=== PATIENT | female | born 1965 | race Caucasian/White ===

== ENCOUNTER → 2020-11-17 09:53 | Outpatient (CLI) | payer OTHER, SELFPAY ==
--- NOTE | ~2020-11-17 | MM_ITS ---
EXAMINATION: MM screening cecy BI w kumar HISTORY: Screening TECHNIQUE: Craniocaudal and mediolateral oblique 3-D tomosynthesis images were obtained and synthetic 2-D images were generated. CAD analysis was submitted and interpreted. COMPARISON: Comparison to multiple prior studies sequentially, with oldest reviewed study dated 02/12. BREAST PARENCHYMAL COMPOSITION: The breasts are heterogeneously dense, which may obscure small masses . FINDINGS: There are surgical changes in the right breast, unchanged. There is no evidence of suspicio us mass, calcification, or architectural distortion to suggest malignancy in either breast. There has been no suspicious interval change. IMPRESSION: 1. No mammographic evidence of malignancy. 2. Recommend routine screening mammography in one year. BI-RADS Category 2: Benign finding(s). Reviewed, dictated and finalized at location A. SUPERVISOR
--- NOTE | ~2020-11-17 | DEXA_ITS ---
Bone Density Report Name: Oriana Austin Age: 54 Sex: Female Ethnicity: White Date of : 1965 Indication: osteopenia; cancer; postmenopausal Referring Provider: Jared, Gina Study: Bone densitometry was performed. Exam Date: November 17, 2020 Accession number: [id number] Bone Density: Region BMD T-score Z-score Classification AP Spine (L1-L4) 0.829 -2.0 -0.8 Osteopenia Femoral Neck (Left) 0.611 -2.1 -1.0 Osteopenia Total Hip (Left) 0.710 -1.9 -1.1 Osteopenia Femoral Neck (Right) 0.583 -2.4 -1.3 Osteopenia Total Hip (Right) 0.741 -1.6 -0.9 Osteopenia Total Hip Mean 0.726 -1.8 -1.0 Osteopenia World Health Organization criteria for BMD impression classify patients as: Normal (T-score at or above -1.0), Osteopenia (T-score between -1.0 and -2.5), or Osteoporosis (T-score at or below -2.5). 10-year Fracture Risk(1): Major Osteoporotic Fracture 8.7% Hip Fracture 1.5% Reported Risk Factors: [place] (), Neck BMD=0.583, BMI=21.2 (1) FRAX(R) Version 3.08. Fracture probability calculated for an untreated patient. Fracture probability may be lower if the patient has received treatment. Previous Exams: Region Exam Age BMD T-score BMD Change BMD Change Date g/cm2 vs Baseline vs Previous AP Spine(L1-L4) 11/17/2020 54 0.829 -2.0 -0.065* -0.065* 02/13/2016 50 0.894 -1.4 Total Hip(Left) 11/17/2020 54 0.710 -1.9 -0.023 -0.023 02/13/2016 50 0.733 -1.7 Total Hip(Right) 11/17/2020 54 0.741 -1.6 -0.013 -0.013 02/13/2016 50 0.754 -1.5 *Denotes significance at 95% confidence level, LSC for AP Spine = 0.022 g/cm2, LSC for Total Hip = 0.027 g/cm2 Clinical Information Provided by Patient: Has used the following medications: Vitamin D, Calcium Has the following medical conditions: Cancer Patient maximum height was 66.0 Menopause Age: 49 No regular weight bearing exercise Drinks caffeinated beverages Onset of menses at age 11 Number of children 2 Impression: The patient has low bone mass, based on the Right Femoral Neck T-score. The patient has an estimated ten-year risk of hip fracture of 1.5% and an estimated ten-year risk of major fracture of 8.7%, based on the WHO FRAX algorithm. The BMD for the AP Spine(L1-L4) decreased, changing by -0.065 since the last DXA exam. Discussion: BONE DENSITY IS LOW AT ONE OR MORE SKELETAL SITES. This patient's lowest T-score is low
== END ==
PROVIDERS: Visit Provider Nurse Practitioner
DX: Z12.31 Encounter for screening mammogram for malignant neoplasm of breast (principal); Z13.820 Encounter for screening for osteoporosis; M85.88 Other specified disorders of bone density and structure, other site; M85.852 Other specified disorders of bone density and structure, left thigh; M85.851 Other specified disorders of bone density and structure, right thigh
CPT/HCPCS: 77063; 77067; 77080

== ENCOUNTER → 2021-10-27 08:42 | Outpatient (CLI) | payer OTHER, SELFPAY ==
[2021-10-27 17:54] LABS: SARS-CoV-2 RNA PCR Negative
== END ==
PROVIDERS: Visit Provider Internal Medicine Gastroenterology
DX: Z01.812 Encounter for preprocedural laboratory examination (principal); Z20.822 Contact with and (suspected) exposure to COVID-19
CPT/HCPCS: C9803; U0003; U0005

== ENCOUNTER 2021-10-30 02:30 | Day surgery (SDC) | payer OTHER, SELFPAY ==
[2021-10-18 13:44] VITALS: BMI 22.6
[2021-10-30 08:10] VITALS: BP 126/72; PULSE 96; RESP 16; TEMP 36.4; O2SAT 98; BMI 22.6
--- NOTE | 2021-10-30 08:20 | P.CONGI_ITS ---
Assessment and Plan Assessment and plan (1) Encounter for screening colonoscopy: Code(s): Z12.11 - Encounter for screening for malignant neoplasm of colon Status: Acute GI Consult Note Consult date/time: 10/30/21 08:20 HPI: Oriana Austin is a 55 year old female Presents for screening colonoscopy. He has been more than 10 years since last screening exam. Brief patient reports that her current weight appetite and bowel movements are normal. She denies abdominal pain. She has had no bleeding. Family history is noncontributory. Patient does report 8 years ago had breast cancer currently followed with no evidence of active disease. Review of Systems Review of Systems: All systems reviewed & are unremarkable except as noted in HPI and below PMFSH Family History Family History (Updated 06/22/16 @ 23:19 by DOCTOR UNKNOWN) Grandparent Family history of malignant neoplasm of breast, Onset Age: 85 Social History Social History Smoking status: Never smoker Alcohol intake: current Alcohol use details: occasional Substance use: never Substance use type: does not use Living arrangements: with family Spiritual care concerns: No Meds Home Medications and Allergies Home Medications Medication Instructions Recorded Confirmed Type alendronate [Fosamax] 70 mg PO WEEKLY 10/18/21 10/30/21 History alprazolam 0.5 mg PO TID 10/18/21 10/30/21 History aspirin [Baby Aspirin] 81 mg PO DAILY 10/18/21 10/30/21 History calcium carbonate-vitamin D3 1 tablet PO DAILY 10/18/21 10/30/21 History [Caltrate 600 plus D] cholecalciferol (vitamin D3) 50 mcg PO DAILY 10/18/21 10/30/21 History [Vitamin D3] eszopiclone [Lunesta] 3 mg PO HS 10/18/21 10/30/21 History fluticasone propionate [Flonase] 2 spray INTRANASAL DAILY 10/18/21 10/30/21 Hist ory loratadine 10 mg PO DAILY 10/18/21 10/30/21 History spironolactone 50 mg PO DAILY 10/18/21 10/30/21 History vilazodone [Viibryd] 20 mg PO DAILY 10/18/21 10/30/21 History Allergies Allergy/AdvReac Type Severity Reaction Status Date / Time Iodinated Contrast Media Allergy Unknown Hives Verified 10/30/21 08:06 Contrast Media Allergy Unknown Hives Uncoded 10/30/21 08:06 Vital Signs Vital Signs - 24 hr 10/30/21 08:10 Temperature 97.6 F Pulse Rate 96 Respiratory Rate 16 Blood Pressure 126/72 Pulse Oximetry 98 Exam Narrative: Physical exam reveals patient be alert. Vital signs stable. HE ENT exam is unremarkable. Patient is anicteric. Lungs are clear to auscultation and percussion. Heart is without murmur or extra sounds. Abdominal exam bowel sounds are present soft nontender with no organomegaly. Digital external rectal exam is normal.
[2021-10-30] MEDS: LACTATED RINGERS 1,000 ML 150 ML IV CONT (08:23)
--- NOTE | 2021-10-30 08:49 | WPDANESEPPF ---
Anes - Initial Pre Proc Eval Procedure: Operation Date: 10/30/21 09:00 Proposed Procedures p Screening Colonoscopy - Raymond Laguna MD Date/Time: 10/30/21 08:49 Surgeon: Raymond Laguna MD Pre Op Diagnosis: neoplasm screening Patient Data Age: 55 Gender: F Height: 1.68 m Weight: 63.8 kg Last Vital Signs Temp 97.6 F 10/30/21 08:10 Pulse 96 10/30/21 08:10 Resp 16 10/30/21 08:10 BP 126/72 10/30/21 08:10 Pulse Ox 98 10/30/21 08:10 Allergies Allergy/AdvReac Type Severity Reaction Status Date / Time Iodinated Contrast Media Allergy Unknown Hives Verified 10/30/21 08:06 Contrast Media Allergy Unknown Hives Uncoded 10/30/21 08:06 Home Medications Medication Instructions Recorded Confirmed Type alendronate [Fosamax] 70 mg PO WEEKLY 10/18/21 10/30/21 History alprazolam 0.5 mg PO TID 10/18/21 10/30/21 History aspirin [Baby Aspirin] 81 mg PO DAILY 10/18/21 10/30/21 History calcium carbonate-vitamin D3 1 tablet PO DAILY 10/18/21 10/30/21 History [Caltrate 600 plus D] cholecalciferol (vitamin D3) 50 mcg PO DAILY 10/18/21 10/30/21 History [Vitamin D3] eszopiclone [Lunesta] 3 mg PO HS 10/18/21 10/30/21 History fluticasone propionate [Flonase] 2 spray INTRANASAL DAILY 10/18/21 10/30/21 History loratadine 10 mg PO DAILY 10/18/21 10/30/21 History spironolactone 50 mg PO DAILY 10/18/21 10/30/21 History vilazodone [Viibryd] 20 mg PO DAILY 10/18/21 10/30/21 History Patient hx anesthesia problems: none Family hx anesthesia problems: none Results Review: All pre-operative results and documents have been reviewed as part of the pre-operative evaluation. [facility] Surgical History Surgical History (Updated 10/30/21 @ 08:43 by Philip Page MD) H/O subtotal mastectomy of right breast Family History Family History (Updated 06/22/16 @ 23:19 by DOCTOR UNKNOWN) Grandparent Family history of malignant neoplasm of breast, Onset Age: 85 Social History Social History Smoking status: Never smoker Alcohol intake: current Alcohol use details: occasional Substance use: never Substance use type: does not use Living arrangements: with family Spiritual care concerns: No Anes - Eval Final PreProcedure Day of Procedure 10/30/21 08:49 Patient weight: overweight Heart: regular rate and rhythm Lungs: clear to auscultation Airway: Mallampati scale class II Neurological: alert and oriented Last oral intake: >/= 8 hours ASA classification: III Emergent: no Anesthetic plan: proceed Anesthesia type and monitoring: general GIVS and standard monitoring Results Review: All pre-operative results and documents have been reviewed as part of the pre-operative evaluation. Informed Consent: The patient's anesthetic plan and its attendant risks and benefits were discussed with the patient/family/POA. Questions were solicited and answers provided to the satisfaction of the patient/family/POA.
[2021-10-30 09:10] VITALS: BP 89/55; PULSE 83; RESP 18; O2SAT 94
[2021-10-30 09:20] VITALS: BP 104/64; PULSE 79; RESP 19; O2SAT 98
[2021-10-30 09:30] VITALS: BP 116/65; PULSE 78; RESP 19; O2SAT 99
== END 2021-10-30 09:40 | disposition home or self-care (01) ==
PROVIDERS: PCP Nurse Practitioner Family; Visit Provider Internal Medicine Gastroenterology
PROC: 0DJD8ZZ Inspection of Lower Intestinal Tract, Via Natural or Artificial Opening Endoscopic (ICD-10-PCS; CPT 45378; principal; 2021-10-30 09:00)
DX: Z12.11 Encounter for screening for malignant neoplasm of colon (principal); K64.8 Other hemorrhoids; Z79.82 Long term (current) use of aspirin; Z85.3 Personal history of malignant neoplasm of breast
CPT/HCPCS: 45378; C9803; J2704; J7120; U0003; U0005

== ENCOUNTER → 2021-11-22 16:09 | Outpatient (CLI) | payer OTHER, SELFPAY ==
--- NOTE | ~2021-11-22 | MM_ITS ---
EXAMINATION: MM screening cecy BI w kumar HISTORY: Screening TECHNIQUE: Craniocaudal and mediolateral oblique 3-D tomosynthesis images were obtained and synthetic 2-D images were generated. CAD analysis was submitted and interpreted. COMPARISON: Comparison to multiple prior studies sequentially, with oldest reviewed study dated 03/12. BREAST PARENCHYMAL COMPOSITION: There are scattered areas of fibroglandular density. FINDINGS: There is no evidence of suspicious mass, calcification, or architectural distortion to sugg est malignancy in either breast. There has been no suspicious interval change. IMPRESSION: 1. No mammographic evidence of malignancy. 2. Recommend routine screening mammography in one year. BI-RADS Category 1: Negative Reviewed, dictated and finalized at location A. RIAL CONTROL MANAGER
== END ==
PROVIDERS: PCP Nurse Practitioner Family; Visit Provider Nurse Practitioner
DX: Z12.31 Encounter for screening mammogram for malignant neoplasm of breast (principal)
CPT/HCPCS: 77063; 77067

== ENCOUNTER → 2023-01-22 14:43 | Outpatient (CLI) | payer BC, SELFPAY ==
--- NOTE | ~2023-01-22 | DEXA_ITS ---
Bone Density Report Name: MITESH VELEZ Age: 57 Sex: Female Ethnicity: White Date of : 1965 Indication: osteopenia; monitoring treatment; postmenopausal Referring Provider: Jared, Gina Study: Bone densitometry was performed. Exam Date: January 22, 2023 Accession number: [id number] Bone Density: Region BMD T-score Z-score Classification AP Spine (L1, L2, L3) 0.831 -1.7 -0.4 Osteopenia Femoral Neck (Left) 0.629 -2.0 -0.7 Osteopenia Total Hip (Left) 0.747 -1.6 -0.7 Osteopenia Femoral Neck (Right) 0.636 -1.9 -0.7 Osteopenia Total Hip (Right) 0.744 -1.6 -0.7 Osteopenia Total Hip Mean 0.746 -1.6 -0.7 Osteopenia World Health Organization criteria for BMD impression classify patients as: Normal (T-score at or above -1.0), Osteopenia (T-score between -1.0 and -2.5), or Osteoporosis (T-score at or below -2.5). 10-year Fracture Risk: FRAX not reported because: Treated for osteoporosis Previous Exams: Region Exam Age BMD T-score BMD Change BMD Change Date g/cm2 vs Baseline vs Previous AP Spine(L1, L2, L3) 01/22/2023 57 0.831 -1.7 -0.026* 0.066* 11/17/2020 54 0.765 -2.3 -0.092* -0.092* 02/13/2016 50 0.857 -1.5 Total Hip(Left) 01/22/2023 57 0.747 -1.6 0.014 0.037* 11/17/2020 54 0.710 -1.9 -0.023 -0.023 02/13/2016 50 0.733 -1.7 Total Hip(Right) 01/22/2023 57 0.744 -1.6 -0.010 0.003 11/17/2020 54 0.741 -1.6 -0.013 -0.013 02/13/2016 50 0.754 -1.5 *Denotes significance at 95% confidence level, LSC for AP Spine = 0.022 g/cm2, LSC for Total Hip = 0.027 g/cm2 Clinical Information Provided by Patient: Is being treated for osteoporosis Has used the following medications: Fosamax (i.e. alendronate), Vitamin D, Calcium Patient maximum height was 66.0 Menopause Age: 49 No regular weight bearing exercise Drinks caffeinated beverages Onset of menses at age 11 Number of children 2 Impression: The patient has low bone mass, based on the Left Femoral Neck T-score. No significant bone loss was observed. Discussion: PATIENT UNDER TREATMENT WITH NO SIGNIFICANT BMD LOSS SINCE LAST EXAM. In an untreated patient, BMD typically declines with age. A lack of decline or gain is usually a sign that treatment is efficacious and fracture risk is reduced. It is important to ask patients whether they are taking their medications
--- NOTE | ~2023-01-22 | MM_ITS ---
EXAMINATION: MM screening cecy BI w kumar HISTORY: Screening mammogram TECHNIQUE: Craniocaudal and mediolateral oblique 3-D tomosynthesis images were obtained and synthetic 2-D images were generated. CAD analysis was submitted and interpreted. COMPARISON: 11/22/2021, 11/13/2020, 03/12/2019 bilateral screening mammogram examinations BREAST PARENCHYMAL COMPOSITION: There are scattered areas of fibroglandular density. FINDINGS: Chronic postsurgical change and surgical clips in the posterior upper central right breast. No new architectural distortion or interval suspicious mass since 11/22/2021 over 03/12/2019. No malig nant calcification, skin thickening or retraction. There is no evidence of suspicious mass, calcifica tion, or architectural distortion to suggest malignancy in either breast. There has been no suspiciou s interval change. IMPRESSION: 1. Status post right partial mastectomy/reconstruction for breast cancer. No mammographic evidence of malignancy. 2. Recommend routine screening mammography in one year. BI-RADS Category 2: Benign finding(s). Reviewed, dictated and finalized at location A. SHAGGER IMPRESSION: 1. Status post right partial mastectomy/reconstruction for breast cancer. No ma mmographic evidence of malignancy. 2. Recommend routine screening mammography in one year. BI-RADS Category 2: Benign finding(s).
== END ==
PROVIDERS: PCP Nurse Practitioner Family; Visit Provider Nurse Practitioner
DX: Z12.31 Encounter for screening mammogram for malignant neoplasm of breast (principal); M85.88 Other specified disorders of bone density and structure, other site; M85.852 Other specified disorders of bone density and structure, left thigh; M85.851 Other specified disorders of bone density and structure, right thigh
CPT/HCPCS: 77063; 77067; 77080